=== PATIENT | male | born 1980 | race Caucasian/White ===

== ENCOUNTER 2017-04-13 03:35 | Emergency (ER) | payer SELFPAY ==
[2017-04-13 03:50] VITALS: BP 144/87; PULSE 104; RESP 16; TEMP 98; O2SAT 98
--- NOTE | 2017-04-13 03:57 | ED PDOC ---
HPI: Head Injury Time Seen by Provider: 04/13/17 03:43 Chief Complaint (Nursing): Trauma Chief Complaint (Provider): head injury History Per: Patient Additional Complaint(s): Pt ambulated to ER for eval of injury to right side of face s/p fall. Past Medical History Vital Signs: Last Vital Signs Temp 98.0 F 04/13/17 03:47 Pulse 104 H 04/13/17 03:47 Resp 16 04/13/17 03:47 BP 144/87 04/13/17 03:47 Pulse Ox 98 04/13/17 03:47 - Allergies Allergies/Adverse Reactions: Allergies Allergy/AdvReac Type Severity Reaction Status Date / Time No Known Allergies Allergy Verified 04/13/17 03:50 - ECG O2 Sat by Pulse Oximetry: 98 Disposition - Disposition
--- NOTE | 2017-04-13 12:31 | CT ---
PROCEDURE: CT HEAD WITHOUT CONTRAST. HISTORY: etoh, fall, head injury COMPARISON: None available. TECHNIQUE: Axial computed tomography images were obtained through the head/brain without intravenous contrast. Radiation dose: Total exam DLP = 793 mGy-cm. This CT exam was performed using one or more of the following dose reduction techniques: Automated exposure control, adjustment of the mA and/or kV according to patient size, and/or use of iterative reconstruction technique. FINDINGS: HEMORRHAGE: No intracranial hemorrhage. BRAIN: No mass effect or edema. No atrophy or chronic microvascular ischemic changes. VENTRICLES: Unremarkable. No hydrocephalus. CALVARIUM: Unremarkable. PARANASAL SINUSES: Unremarkable as visualized. No significant inflammatory changes. MASTOID AIR CELLS: Unremarkable as visualized. No inflammatory changes. OTHER FINDINGS: None. IMPRESSION: Normal CT of the Head.
== END 2017-04-13 05:23 | disposition home or self-care (01) ==
LOC: H.ER 03:35
DX: S09.90XA Unspecified injury of head, initial encounter (principal); W19.XXXA Unspecified fall, initial encounter; Y92.89 Other specified places as the place of occurrence of the external cause